=== PATIENT | female | born 1930 | race Asian ===

== ENCOUNTER 2017-09-10 19:22 | Inpatient (IN) | payer MEDICARE ==
[2017-09-10 19:52] LABS: ADD MAN DIFF? NO
[2017-09-10 19:53] LABS: BASOPHILS % 0.2 % (0.0-2.0); EOSINOPHILS % 0.4 % (0.0-7.0); HEMATOCRIT 37.5 % (37.0-47.0); HEMOGLOBIN 12.2 g/dl (12.0-16.0); LYMPHOCYTES # 1.7 10^3/ul (0.8-2.9); LYMPHOCYTES % 30.7 % (15.0-51.0); MEAN CORPUSCULAR HEMOGLOBIN 26.8 pg (29.0-33.0); MEAN CORPUSCULAR HGB CONC 32.5 g/dl (32.0-37.0); MEAN CORPUSCULAR VOLUME 82.2 fl (82.0-101.0); MEAN PLATELET VOLUME 12.1 fl (7.4-10.4); MONOCYTE # 0.4 10^3/ul (0.3-0.9); MONOCYTES % 6.5 % (0.0-11.0); NEUTROPHIL # 3.3 10^3/ul (1.6-7.5); PLATELET COUNT 141 10^3/UL (140-415); RED BLOOD COUNT 4.56 10^6/ul (4.20-5.40); RED CELL DISTRIBUTION WIDTH 15.4 % (11.5-14.5)
[2017-09-10 19:53] LABS: WHITE BLOOD COUNT 5.4 10^3/ul (4.8-10.8)
[2017-09-10 20:06] LABS: AADO2 Arterial 34.2 mmHg (7.0-24.0); Allen Test ACCEPTAB; Arterial Base Excess -2.6 mmol/L (-3.0-3); Arterial Blood Gas Oxygen Sat 98.6 mmHG (95.0-100.0); Arterial COHb 0.4 % (0.0-3.0); Arterial Fraction of Oxyhgb 97.8 % (93.0-99.0); Arterial HCO3 19.1 mmol/L (22.0-26.0); Arterial MetHb 0.4 % (0.0-1.5); Arterial Total Hemglobin 12.6 g/dl (12.0-18.0); Arterial pCO2 24.9 mmhg (35-45); MODE NASAL CANNULA; Site Right Radial
[2017-09-10 20:12] LABS: ALANINE AMINOTRANSFERASE 18 IU/L (13-69); ALBUMIN 4.4 g/dl (3.3-4.9); ALBUMIN/GLOBULIN RATIO 1.15; ALKALINE PHOSPHATASE 105 IU/L (42-121); ANION GAP 18 (8-16); ASPARTATE AMINO TRANSFERASE 27 IU/L (15-46); BILIRUBIN,INDIRECT 0.6 mg/dl (0-1.1); BILIRUBIN,TOTAL 0.6 mg/dl (0.2-1.3); BLOOD UREA NITROGEN 33 mg/dl (7-20); CALCIUM 9.7 mg/dl (8.4-10.2); CARBON DIOXIDE 23 mmol/L (21-31); CHLORIDE 108 mmol/L (97-110); CREATININE 1.37 mg/dl (0.44-1.00); GLUCOSE 110 mg/dl (70-220); LIPASE 166 U/L (23-300); POTASSIUM 4.7 mmol/L (3.5-5.1); SODIUM 144 mmol/L (135-144); TOTAL PROTEIN 8.2 g/dl (6.1-8.1)
[2017-09-10 20:15] LABS: UR BACTERIA FEW /HPF (NONE SEEN); UR HYALINE CAST FEW /HPF (NONE SEEN); UR MUCUS FEW /HPF (NONE SEEN); UR RBC 3 /HPF (0-5); UR SQUAMOUS EPITHELIAL CELL MANY /HPF (FEW); UR WBC 8 /HPF (0-5)
[2017-09-10 20:22] LABS: ADD UMIC YES; UR ASCORBIC ACID NEGATIVE (NEGATIVE); UR BILIRUBIN (Dip) NEGATIVE (NEGATIVE); UR BLOOD (Dip) 1+ mg/dL (NEGATIVE); UR CLARITY SLIGHTLY CLOUDY (CLEAR); UR COLOR YELLOW (YELLOW); UR GLUCOSE (Dip) NEGATIVE (NEGATIVE); UR KETONES (Dip) NEGATIVE (NEGATIVE); UR LEUKOCYTE ESTERASE (Dip) TRACE Leu/ul (NEGATIVE); UR NITRITE (Dip) NEGATIVE (NEGATIVE); UR SPECIFIC GRAVITY (Dip) 1.019 (1.003-1.030); UR TOTAL PROTEIN (Dip) NEGATIVE (NEGATIVE); UR UROBILINOGEN (Dip) NEGATIVE (NEGATIVE)
[2017-09-10] MEDS: SOD CHLORIDE 0.9% 1,000 ML IV (20:27)
[2017-09-10 20:39] LABS: TROPONIN-I < 0.012 ng/ml (0.000-0.120)
[2017-09-10 20:40] LABS: AMPHETAMINE/METHAMPHETAMINE Negative (NEGATIVE); BARBITURATES Negative (NEGATIVE); BENZODIAZEPINES Negative (NEGATIVE); CANNABINOIDS Negative (NEGATIVE); COCAINE Negative (NEGATIVE); OPIATES Negative (NEGATIVE)
[2017-09-10 21:33] LABS: PROTIME 15.4 Sec (11.9-14.9); PT RATIO 1.2
[2017-09-10 21:34] LABS: PARTIAL THROMBOPLASTIN TIME 31.9 Sec (25.0-35.0)
[2017-09-10] MEDS: CEFTRIAXONE 1 GM/50 ML (PMX) 50 ML IVPB (22:24)
[2017-09-10] MEDS ORDERED: ONDANSETRON 4 MG INJ IV (23:00)
[2017-09-10] MEDS ORDERED: ACETAMINOPHEN 650 MG SUPP PR (23:00)
[2017-09-11 00:09] LABS: SALICYLATE 19.8 mg/dl (5.0-30.0)
[2017-09-11 00:12] LABS: ACETAMINOPHEN < 10.0 ug/ml (10.0-30.0)
[2017-09-11 00:12] LABS: ETHANOL < 10.0 mg/dl
[2017-09-11] MEDS: SOD CHLORIDE 0.9% 1,000 ML IV (00:44)
[2017-09-11] MEDS: PANTOPRAZOLE 40 MG INJ IV (05:24)
[2017-09-11 11:19] LABS: ANION GAP 17 (8-16); BLOOD UREA NITROGEN 29 mg/dl (7-20); CARBON DIOXIDE 22 mmol/L (21-31); CHLORIDE 110 mmol/L (97-110); CREATININE 1.21 mg/dl (0.44-1.00); GLUCOSE 92 mg/dl (70-220); POTASSIUM 4.8 mmol/L (3.5-5.1); SODIUM 144 mmol/L (135-144)
[2017-09-11 11:28] LABS: CALCIUM 8.5 mg/dl (8.4-10.2)
[2017-09-11] MEDS: SERTRALINE 50 MG TAB PO (13:51)
[2017-09-11] MEDS: CEFTRIAXONE 1 GM/50 ML (PMX) 50 ML IVPB (20:31)
[2017-09-12] MEDS: PANTOPRAZOLE 40 MG INJ IV (05:56)
[2017-09-12] MEDS: SERTRALINE 50 MG TAB PO (09:50)
== END 2017-09-12 16:05 | disposition home or self-care (01) | DRG 917 ==
LOC: MS2 09-12 05:24 → ICU 20:36 → E/R 19:22 → MS2 09-11 15:31
DX: T43.212A Poisoning by selective serotonin and norepinephrine reuptake inhibitors, intentional self-harm, initial encounter (principal); G92 Toxic encephalopathy; F33.2 Major depressive disorder, recurrent severe without psychotic features; Y92.013 Bedroom of single-family (private) house as the place of occurrence of the external cause; I10 Essential (primary) hypertension
CPT/HCPCS: 36415; 36600; 71045; 80048; 80053; 80306; 80307; 81001; 82803; 83690; 84484; 85025; 85610; 85730; 87081; 87086; 93005; 96374; 99291-25